=== PATIENT | female | born 1990 | race Caucasian/White ===

== ENCOUNTER 2021-01-18 18:12 | Emergency (ER) | payer OTHER ==
[2021-01-18] MEDS ORDERED: Sodium Chloride 0.9% 10 ML Syringe FLUSH PRN (18:34)
[2021-01-18] MEDS ORDERED: Sodium Chloride 0.9% 1,000 ML IV STA ×2 (18:34→20:02)
[2021-01-18] MEDS ORDERED: Ondansetron 4 MG/2 ML SDV IVPUSH ONE (18:34)
--- NOTE | 2021-01-18 18:56 | EDM.PDOC ---
ED HPI GENERAL MEDICAL PROBLEM - General Chief Complaint: Gastrointestinal Problem Stated Complaint: VOMITING AND DIARRHEA Time Seen by Provider: 01/18/21 18:25 Source of Information: Reports: Patient, RN Notes Reviewed History Limitations: Reports: No Limitations - History of Present Illness INITIAL COMMENTS - FREE TEXT/NARRATIVE: Patient is a 31-year-old female presenting to the emergency department with complaints of nausea, vomiting, diarrhea, and abdominal cramping that began this morning. She reports about 4 episodes of vomiting today but has been able to keep some liquids down. She has had somewhat continuous watery loose stools. Describes generalized abdominal cramping. She reports that both of her sons were sick with similar symptoms on Thursday and yesterday. She denies any known fever. Reports that she has been getting lightheaded upon standing. Abdomen Pain Score (Numeric/FACES): 7 - Related Data Allergies Allergy/AdvReac Type Severity Reaction Status Date / Time No Known Allergies Allergy Verified 01/18/21 18:26 Home Meds: Home Meds Dicyclomine [Bentyl] 20 mg PO Q8H PRN #9 tab 01/18/21 [Rx] Escitalopram Oxalate [Lexapro] 20 mg PO DAILY 01/18/21 [History] Ondansetron [Zofran ODT] 4 mg PO Q6H PRN #10 tab.dis 01/18/21 [Rx] Vit No.129/Iron/FA [ One Daily Tablet] 1 tab PO DAILY 01/18/21 [History] Past Medical History Psychiatric History: Reports: Depression - Infectious Disease History Infectious Disease History: Reports: C-Difficile, Meningitis Social & Family History - Tobacco Use Tobacco Use Status *Q: Never Tobacco User - Caffeine Use Caffeine Use: Reports: Coffee, Soda - Recreational Drug Use Recreational Drug Use: No ED ROS GENERAL - Review of Systems Review Of Systems: Comprehensive ROS is negative, except as noted in HPI. ED EXAM, GI/ABD - Physical Exam Exam: See Below Exam Limited By: No Limitations General Appearance: Alert, WD/WN, No Apparent Distress Respiratory/Chest: No Respiratory Distress, Lungs Clear, Normal Breath Sounds, No Accessory Muscle Use, Chest Non-Tender Cardiovascular: Normal Peripheral Pulses, Regular Rate, Rhythm, No Edema, No Gallop, No JVD, No Murmur, No Rub GI/Abdominal Exam: Normal Bowel Sounds, Soft, No Organomegaly, No Distention, No Abnormal Bruit, No Mass, Pelvis Stable, Tender (mild generalized) Neurological: Alert, Oriented, CN II-XII Intact, Normal Cognition, Normal Gait, Normal Reflexes, No Motor/Sensory Deficits Psychiatric: Normal Affect, Normal Mood Skin Exam: Warm, Dry, Intact, Normal Color, No Rash Course - Vital Signs Last Recorded V/S: Last Vital Signs Temp 96.8 F L 01/18/21 18:30 Pulse 94 01/18/21 18:30 Resp 20 01/18/21 18:30 BP 100/73 01/18/21 18:30 Pulse Ox 99 01/18/21 18:30 - Orders/Labs/Meds Labs: Laboratory Tests 01/18/21 01/18/21 01/18/21 Range/Units 18:45 18:45 18:45 WBC 14.64 H (3.98-10.04) K/mm3 RBC 4.80 (3.98-5.22) M/mm3 Hgb 14.3 (11.2-15.7) gm/dl Hct 44.1 (34.1-44.9) % MCV 91.9 (79.4-94.8) fl MCH 29.8 (25.6-32.2) pg MCHC 32.4 (32.2-35.5) g/dl RDW Std Deviation 41.8 (36.4-46.3) fL Plt Count 234 (182-369) K/mm3 MPV 10.7 (9.4-12.3) fl Neut % (Auto) 92.9 H (34.0-71.1) % Lymph % (Auto) 3.4 L (19.3-51.7) % Bracken % (Auto) 3.3 L (4.7-12.5) % Eos % (Auto) 0.1 L (0.7-5.8) Baso % (Auto) 0.1 (0.1-1.2) % Neut # (Auto) 13.59 H (1.56-6.13) K/mm3 Lymph # (Auto) 0.50 L (1.18-3.74) K/mm3 Bracken # (Auto) 0.49 H (0.24-0.36) K/mm3 Eos # (Auto) 0.01 L (0.04-0.36) K/mm3 Baso # (Auto) 0.02 (0.01-0.08) K/mm3 Manual Slide Review Abnormal smear Sodium 138 (136-145) mEq/L Potassium 3.9 (3.5-5.1) mEq/L Chloride 103 (98-107) mEq/L Carbon Dioxide 21 (21-32) mEq/L Anion Gap 17.9 H (5-15) BUN 24 H (7-18) mg/dL Creatinine 1.2 H (0.55-1.02) mg/dL Est Cr Clr Drug Dosing 58.66 mL/min Estimated GFR (MDRD) 52 (>60) mL/min BUN/Creatinine Ratio 20.0 H (14-18) Glucose 138 H (70-99) mg/dL Calcium 9.0 (8.5-10.1) mg/dL Magnesium 2.0 (1.8-2.4) mg/dL Total Bilirubin 0.6 (0.2-1.0) mg/dL AST 23 (15-37) U/L ALT 28 (14-59) U/L Alkaline Phosphatase 87 (46-116) U/L C-Reactive Protein 0.7 (<1.0) mg/dL Total Protein 8.2 (6.4-8.2) g/dl Albumin 4.3 (3.4-5.0) g/dl Globulin 3.9 gm/dL Albumin/Globulin Ratio 1.1 (1-2) Lipase 96 (73-393) U/L Urine Color (Yellow) Urine Appearance (Clear) Urine pH (5.0-8.0) Ur Specific [place] (1.005-1.030) Urine Protein (Negative) Urine Glucose (UA) (Negative) Urine Ketones (Negative) Urine Occult Blood (Negative) Urine Nitrite (Negative) Urine Bilirubin (Negative) Urine Urobilinogen (0.2-1.0) Ur Leukocyte Esterase (Negative) Urine RBC (0-5) /hpf Urine WBC (0-5) /hpf Ur Squamous Epith Cells (0-5) /hpf Urine Bacteria (FEW) /hpf Urine Mucus (FEW) /hpf 01/18/21 Range/Units 20:03 WBC (3.98-10.04) K/mm3 RBC (3.98-5.22) M/mm3 Hgb (11.2-15.7) gm/dl Hct (34.1-44.9) % MCV (79.4-94.8) fl MCH (25.6-32.2) pg MCHC (32.2-35.5) g/dl RDW Std Deviation (36.4-46.3) fL Plt Count (182-369) K/mm3 MPV (9.4-12.3) fl Neut % (Auto) (34.0-71.1) % Lymph % (Auto) (19.3-51.7) % Bracken % (Auto) (4.7-12.5) % Eos % (Auto) (0.7-5.8) Baso % (Auto) (0.1-1.2) % Neut # (Auto) (1.56-6.13) K/mm3 Lymph # (Auto) (1.18-3.74) K/mm3 Bracken # (Auto) (0.24-0.36) K/mm3 Eos # (Auto) (0.04-0.36) K/mm3 Baso # (Auto) (0.01-0.08) K/mm3 Manual Slide Review Sodium (136-145) mEq/L Potassium (3.5-5.1) mEq/L Chloride (98-107) mEq/L Carbon Dioxide (21-32) mEq/L Anion Gap (5-15) BUN (7-18) mg/dL Creatinine (0.55-1.02) mg/dL Est Cr Clr Drug Dosing mL/min Estimated GFR (MDRD) (>60) mL/min BUN/Creatinine Ratio (14-18) Glucose (70-99) mg/dL Calcium (8.5-10.1) mg/dL Magnesium (1.8-2.4) mg/dL Total Bilirubin (0.2-1.0) mg/dL AST (15-37) U/L ALT (14-59) U/L Alkaline Phosphatase (46-116) U/L C-Reactive Protein (<1.0) mg/dL Total Protein (6.4-8.2) g/dl Albumin (3.4-5.0) g/dl Globulin gm/dL Albumin/Globulin Ratio (1-2) Lipase (73-393) U/L Urine Color Yellow (Yellow) Urine Appearance Clear (Clear) Urine pH 6.0 (5.0-8.0) Ur Specific [place] 1.025 (1.005-1.030) Urine Protein Trace H (Negative) Urine Glucose (UA) Negative (Negative) Urine Ketones Trace H (Negative) Urine Occult Blood Negative (Negative) Urine Nitrite Negative (Negative) Urine Bilirubin Negative (Negative) Urine Urobilinogen 0.2 (0.2-1.0) Ur Leukocyte Esterase Negative (Negative) Urine RBC 0-5 (0-5) /hpf Urine WBC 0-5 (0-5) /hpf Ur Squamous Epith Cells 0-5 (0-5) /hpf Urine Bacteria Few (FEW) /hpf Urine Mucus Moderate H (FEW) /hpf Meds: Medications Discontinued Medications Generic Name Dose Route Start Last Admin Trade Name Freq PRN Reason Stop Dose Admin Dicyclomine HCl 20 mg 01/18/21 19:38 01/18/21 19:59 Dicyclomine 10 Mg Cap PO 01/18/21 19:39 20 mg ONETIME ONE Administration Sodium Chloride 1,000 mls @ 999 mls/hr 01/18/21 18:34 01/18/21 18:49 Normal Saline IV 01/18/21 19:34 999 mls/hr NOW STA Administration Sodium Chloride 1,000 mls @ 999 mls/hr 01/18/21 20:02 01/18/21 20:08 Normal Saline IV 01/18/21 21:02 999 mls/hr NOW STA Administration Ondansetron HCl 4 mg 01/18/21 18:34 01/18/21 18:50 Ondansetron 4 Mg/2 Ml Sdv IVPUSH 01/18/21 18:35 4 mg ONETIME ONE Administration Sodium Chloride 10 ml 01/18/21 18:34 01/18/21 18:50 Sodium Chloride 0.9% 10 Ml Syringe FLUSH 10 ml ASDIRECTED PRN Administration Keep Vein Open - Re-Assessments/Exams Free Text/Narrative Re-Assessment/Exam: 01/18/21 20:59 Hematology was significant for WBC elevated at 14.64, anion gap 17.9, BUN 24, creatinine 1.2. Potassium, magnesium, and lipase are normal. Urinalysis is negative for infection. Patient has had no further vomiting since arriving to ER. She did have one episode of loose stool. She has received 2 L of IV fluid as well as Bentyl which has significantly improved her symptoms. Patient is likely suffering from viral gastroenteritis. Prescription has been sent for wrote Zofran for nausea and Bentyl for abdominal cramping. Recommend clear liquid diet for the next 24 to 72 hours then slowly advance. Discharge instructions as documented. Departure - Departure Time of Disposition: 21:01 Disposition: Home, Self-Care 01 Condition: Good Clinical Impression: Gastroenteritis - Discharge Information *PRESCRIPTION DRUG MONITORING PROGRAM REVIEWED*: No *COPY OF PRESCRIPTION DRUG MONITORING REPORT IN PATIENT HERMAN: No Prescriptions: Dicyclomine [Bentyl] 20 mg PO Q8H PRN #9 tab PRN Reason: Abdominal Pain Ondansetron [Zofran ODT] 4 mg PO Q6H PRN #10 tab.dis PRN Reason: Nausea/Vomiting Instructions: Viral Gastroenteritis, Adult, [id number] Referrals: PCP,Not In Area [Primary Care Provider] - Forms: ED Department Discharge Additional Instructions: You were seen in the emergency department today for evaluation with regards to nausea, vomiting, diarrhea, and abdominal cramping. Blood work and urinalysis were completed. This did show that you were dehydrated but were otherwise normal. While in the ER, you received medication for nausea, medication for abdominal cramping, and IV fluids. This did improve your symptoms. A prescription for Zofran for nausea and Bentyl for abdominal cramping has been sent. Take these medications as prescribed. Be aware that she did receive a dose of each of these in the emergency department, therefore you should not take them until 6 hours from your ER visit for the Zofran and 8 hours from ER visit for the Bentyl. Recommend clear liquid diet for the next 24 to 72 hours. Avoid fruit juice or dairy products until symptoms have completely resolved. When symptoms are improving, you may slowly advance her diet as tolerated. If you experience any new or worsening symptoms, please not hesitate to return to the emergency department for reevaluation. Sepsis Event Note (ED) - Evaluation Sepsis Screening Result: No Definite Risk
[2021-01-18] MEDS ORDERED: Dicyclomine 10 MG Cap PO ONE (19:38)
== END 2021-01-18 21:31 | disposition home or self-care (01) ==
LOC: JD.ED 18:12
DX: K52.9 Noninfective gastroenteritis and colitis, unspecified (principal); Z79.899 Other long term (current) drug therapy
CPT/HCPCS: 36415; 80053; 81001; 83690; 83735; 85025; 86140; 96374; 99284; A9270; J2405; J7030; 99283

== ENCOUNTER 2023-05-24 07:08 | Inpatient (IN) | payer OTHER ==
[~2023-05-24 07:08] MED LIST: Bupivacaine 0.25% 10 ML SDV ONE
[2023-05-24] MEDS ORDERED: Lidocaine 1% 50 ML MDV INJECT ONE (07:20)
[2023-05-24] MEDS ORDERED: Ondansetron 4 MG/2 ML SDV IVPUSH PRN (07:20)
[2023-05-24] MEDS ORDERED: Ampicillin 2 GM in Sodium Chloride 0.9% 100 ML IV ONE (07:20)
[2023-05-24] MEDS ORDERED: Calcium Carbonate 500 MG Tab.Chew PO PRN (07:20)
[2023-05-24] MEDS ORDERED: Nalbuphine 10 MG/0.5 ML Syringe IVPUSH PRN (07:20)
[2023-05-24] MEDS ORDERED: Oxytocin/Lactated Ringers 10 UNIT/1,000 ML BAG IV SCH ×3 (07:30→16:54)
[2023-05-24 07:46] LABS: BASOPHILS ABSOLUTE AUTO 0.1 K/mm3 (0.0-0.2); BASOPHILS PERCENT AUTO 0.7 % (0.0-1.0); EOSINOPHILS ABSOLUTE AUTO 0.2 K/mm3 (0.0-0.4); EOSINOPHILS PERCENT AUTO 2.5 % (0.0-6.0); HEMATOCRIT 37.7 % (37.0-47.0); HEMOGLOBIN 13.4 gm/dl (12.0-16.0); IMMATURE GRAN ABSOLUTE AUTO 0.07 K/mm3 (0.00-0.05); IMMATURE GRAN PERCENT AUTO 0.9 % (0.0-0.4); LYMPHOCYTES PERCENT AUTO 24.4 % (24.0-44.0); MEAN CORPUSCULAR HEMOGLOBIN 32.6 pg (28.0-32.0); MEAN CORPUSCULAR HGB CONC 35.5 g/dl (32.0-36.0); MEAN CORPUSCULAR VOLUME 91.7 fl (83.0-99.0); MEAN PLATELET VOLUME 12.5 fl (9.4-12.3); MONOCYTES ABSOLUTE AUTO 0.6 K/mm3 (0.0-0.8); MONOCYTES PERCENT AUTO 7.7 % (0.0-8.0); NEUTROPHILS ABSOLUTE AUTO 5.1 K/mm3 (1.8-7.7); NEUTROPHILS PERCENT AUTO 63.8 % (41.0-71.0); PLATELET COUNT,PLT 171 K/mm3 (150-400); RED BLOOD CELL COUNT 4.11 M/mm3 (4.10-5.30); WHITE BLOOD CELL COUNT,WBC 8.04 K/mm3 (3.9-11.3)
[2023-05-24] MEDS: Lactated Ringers 1,000 ML IV SCH ×2 (08:37→12:10)
[2023-05-24] MEDS ORDERED: fentaNYL 100 MCG/2 ML SDV ONE (11:41)
[2023-05-24] MEDS ORDERED: fentaNYL 100 MCG/2 ML SDV EPIDUR PRN (11:47)
[2023-05-24] MEDS ORDERED: Bupivacaine/fentaNYL/NS 100 ML Bag EPIDUR PRN (11:47)
[2023-05-24] MEDS ORDERED: diphenhydrAMINE 50 MG/ML SDV IVPUSH PRN (11:47)
[2023-05-24] MEDS ORDERED: ePHEDrine 50 MG/ML SDV IVPUSH PRN (11:47)
[2023-05-24] MEDS: Ampicillin 1 GM in Sodium Chloride 0.9% 100 ML IV SCH ×2 (12:30→18:56)
[2023-05-24] MEDS ORDERED: Magnesium Hydroxide 400 MG/5 ML Susp 30 ML Cup PO PRN (16:54)
[2023-05-24] MEDS ORDERED: Hydrocortisone Acetate 25 MG Supp RECTAL PRN (16:54)
[2023-05-24] MEDS ORDERED: Witch Hazel Medicated Pads 40/Jar TOP PRN (16:54)
[2023-05-24] MEDS ORDERED: Benzocaine/Menthol 20%-0.5% Spray 78 GM Cannister TOP PRN (16:54)
[2023-05-24] MEDS: Docusate Sodium 100 MG Cap PO PRN (17:51)
[2023-05-24] MEDS: Ibuprofen 600 MG Tab PO PRN (17:52)
[2023-05-24] MEDS: Acetaminophen 325 MG Tab PO PRN (20:12)
[2023-05-25] MEDS: Acetaminophen 325 MG Tab PO PRN ×3 (01:51→18:41)
[2023-05-25] MEDS: Ibuprofen 600 MG Tab PO PRN ×3 (01:51→18:41)
[2023-05-25] MEDS: Prenatal Multivitamin with Calcium/Folic Acid/Iron Tab PO SCH (09:05)
[2023-05-25] MEDS: Docusate Sodium 100 MG Cap PO PRN (09:05)
[2023-05-26] MEDS: Ibuprofen 600 MG Tab PO PRN (04:00)
[2023-05-26] MEDS: Docusate Sodium 100 MG Cap PO PRN (04:01)
[2023-05-26] MEDS: Acetaminophen 325 MG Tab PO PRN (04:02)
[2023-05-26] MEDS: Prenatal Multivitamin with Calcium/Folic Acid/Iron Tab PO SCH (08:47)
== END 2023-05-26 10:10 | disposition home or self-care (01) | DRG 807 ==
LOC: JD.OB 07:08 → OBSVTOIN 15:11 → JD.OB 15:12
PROVIDERS: ADMIT Obstetrics & Gynecology; ATTEND Obstetrics & Gynecology
PROC: 10E0XZZ Delivery of Products of Conception, External Approach (ICD-10-PCS; principal; 2023-05-24)
PROC: 0KQM0ZZ Repair Perineum Muscle, Open Approach (ICD-10-PCS; 2023-05-24)
PROC: 10907ZC Drainage of Amniotic Fluid, Therapeutic from Products of Conception, Via Natural or Artificial Opening (ICD-10-PCS; 2023-05-24)
PROC: 3E0R3BZ Introduction of Anesthetic Agent into Spinal Canal, Percutaneous Approach (ICD-10-PCS; 2023-05-24)
PROC: 00HU33Z Insertion of Infusion Device into Spinal Canal, Percutaneous Approach (ICD-10-PCS; 2023-05-24)
PROC: 3E0334Z Introduction of Serum, Toxoid and Vaccine into Peripheral Vein, Percutaneous Approach (ICD-10-PCS; 2023-05-24)
DX: O99.824 Streptococcus B carrier state complicating childbirth (principal); Z37.0 Single live birth; O26.893 Other specified pregnancy related conditions, third trimester; O70.1 Second degree perineal laceration during delivery; Z3A.39 39 weeks gestation of pregnancy; Z67.41 Type O blood, Rh negative; Z87.59 Personal history of other complications of pregnancy, childbirth and the puerperium
CPT/HCPCS: 01967; 36415; 51702; 59025; 59409; 85025; 85461; 86592; 86850; 86870; 86900; 86901; A9270-GY; J0290; J2590; J2790; J3010; J3490; J7120

== ENCOUNTER 2023-12-11 03:46 | Emergency (ER) | payer OTHER ==
[2023-12-11] MEDS: Ketorolac 15 MG/ML SDV IVPUSH ONE (04:10)
[2023-12-11] MEDS: Ondansetron 4 MG/2 ML SDV IVPUSH ONE ×2 (04:10→05:46)
[2023-12-11] MEDS: Sodium Chloride 0.9% 1,000 ML IV ONE (04:11)
[2023-12-11 04:15] LABS: BASOPHILS ABSOLUTE AUTO 0.1 K/mm3 (0.0-0.2); BASOPHILS PERCENT AUTO 0.5 % (0.0-1.0); EOSINOPHILS ABSOLUTE AUTO 0.2 K/mm3 (0.0-0.4); EOSINOPHILS PERCENT AUTO 1.5 % (0.0-6.0); HEMATOCRIT 39.6 % (37.0-47.0); HEMOGLOBIN 13.5 gm/dl (12.0-16.0); IMMATURE GRAN ABSOLUTE AUTO 0.04 K/mm3 (0.00-0.05); IMMATURE GRAN PERCENT AUTO 0.4 % (0.0-0.4); LYMPHOCYTES ABSOLUTE AUTO 2.3 K/mm3 (1.0-4.8); MEAN CORPUSCULAR HEMOGLOBIN 31.2 pg (28.0-32.0); MEAN CORPUSCULAR HGB CONC 34.1 g/dl (32.0-36.0); MEAN CORPUSCULAR VOLUME 91.5 fl (83.0-99.0); MEAN PLATELET VOLUME 10.7 fl (9.4-12.3); MONOCYTES ABSOLUTE AUTO 0.8 K/mm3 (0.0-0.8); MONOCYTES PERCENT AUTO 7.4 % (0.0-8.0); NEUTROPHILS ABSOLUTE AUTO 7.9 K/mm3 (1.8-7.7); NEUTROPHILS PERCENT AUTO 70.2 % (41.0-71.0); PLATELET COUNT,PLT 249 K/mm3 (150-400); RED BLOOD CELL COUNT 4.33 M/mm3 (4.10-5.30); WHITE BLOOD CELL COUNT,WBC 11.23 K/mm3 (3.9-11.3)
[2023-12-11 04:28] LABS: ALBUMIN 3.6 g/dl (3.4-5.0); ANION GAP 14.7 (5-15); BILIRUBIN TOTAL 0.3 mg/dL (0.2-1.0); CALCIUM 8.7 mg/dL (8.5-10.1); EST CRCL DRUG DOSING (CG) 69.1 mL/min; PROTEIN TOTAL,TP 7.1 g/dl (6.4-8.2)
[2023-12-11 04:30] LABS: POTASSIUM,K 3.7 mEq/L (3.5-5.1)
[2023-12-11] MEDS: Morphine 4 MG/ML Syringe IVPUSH ONE (04:56)
[2023-12-11] MEDS: Iopamidol 612 MG/ML 100 ML Bottle IVPUSH ONE (05:16)
[2023-12-11] MEDS: Sodium Chloride 0.9% 10 ML Syringe FLUSH PRN (05:16)
[2023-12-11 06:20] LABS: APPEARANCE,URINE CLOUDY (Clear); BILIRUBIN,URINE NEGATIVE (Negative); COLOR,URINE YELLOW (Yellow); GLUCOSE,URINE NEGATIVE (Negative); KETONES,URINE 1+ (Negative); LEUKOCYTE ESTERASE,URINE NEGATIVE (Negative); NITRITE,URINE NEGATIVE (Negative); OCCULT BLOOD,URINE 2+ (Negative); PH,URINE 7.5 (5.0-8.0); PROTEIN,URINE 1+ (Negative); UROBILINOGEN,URINE 0.2 (0.2-1.0)
[2023-12-11 07:04] LABS: RBC,URINE 50-75 /hpf (0-5)
[2023-12-11 07:05] LABS: BACTERIA,URINE FEW /hpf (FEW); MUCUS,URINE MODERATE /hpf (FEW)
== END 2023-12-11 07:35 | disposition home or self-care (01) ==
LOC: JD.ED 03:46
DX: O99.893 Other specified diseases and conditions complicating puerperium (principal); N13.2 Hydronephrosis with renal and ureteral calculous obstruction; Z79.899 Other long term (current) drug therapy
CPT/HCPCS: 36415; 74177; 80053; 81001; 83690; 84703; 85025; 96361; 96374; 96375; 96376; 99284; J1885; J2270; J2405; J3490; J7030; Q9967